=== PATIENT | female | born 1960 | race American Indian/Alaskan Native ===

== ENCOUNTER 2016-09-15 18:02 | Emergency (ER) | payer SELFPAY ==
--- NOTE | 2016-09-15 21:22 | Emergency Department Report ---
ED Asthma HPI - General Chief Complaint: Adult Asthma Stated Complaint: DANIEL/CHEST TIGHT Time Seen by Provider: 09/15/16 21:15 Source: patient Mode of arrival: Ambulatory Limitations: No Limitations - History of Present Illness Initial Comments: 55-year-old -French female with a past medical history of asthma comes in today for shortness of breathing for the past 2 days shortness of breathing worse at night and positive wheezing times one week area she admits to sneezing and coughing feeling stopped up. She denies any fever no chills no nausea no vomiting. She was recently in the hospital June 2016 for asthma and bronchitis. She does report she is out of her nebs she was taken that day prior to to 3 times a day. He has no known drug allergies - Related Data Previous Rx's Medication Instructions Recorded Last Taken Type Promethazine /Codeine 5 ml PO Q6H PRN #120 udc 08/25/14 Unknown Rx [Phenergan/Codeine 6.25-10 mg/5 ml] ALBUTEROL Inhaler [ProAir HFA 2 puff IH QID PRN #1 inhalation 06/23/16 Unknown Rx Inhaler] ALBUTEROL NEB's [Proventil 0.083% 2.5 mg IH Q4H PRN #30 nebu 06/23/16 Unknown Rx NEBS] Azithromycin [Zithromax Z-WILY] 1 dose PO DAILY #1 pack 06/23/16 Unknown Rx Benzonatate [Tessalon Perles] 100 mg PO Q8HR #30 capsule 06/23/16 Unknown Rx Famotidine [Pepcid] 20 mg PO BID #60 tablet 06/23/16 Unknown Rx Ipratropium/Albuterol Sulfate 1 ampul IH Q6HRT #30 ampul.neb 06/23/16 Unknown Rx [Duoneb 0.5 mg-3 mg/3 ml Soln] methylPREDNISolone [Medrol Dose 1 dose PO DAILY #1 pack 06/23/16 Unknown Rx Wily] ALBUTEROL NEB's [Proventil 0.083% 2.5 mg IH TID PRN #1 box 09/15/16 Unknown Rx NEBS] predniSONE [Deltasone] 20 mg PO QDAY #4 tab 09/15/16 Unknown Rx Allergies Allergy/AdvReac Type Severity Reaction Status Date / Time No Known Allergies Allergy Verified 04/27/15 17:41 ED Review of Systems ROS: Stated complaint: DANIEL/CHEST TIGHT Other details as noted in HPI ED Past Medical Hx - Past Medical History Hx Hypertension: Yes Hx Congestive Heart Failure: No Hx Diabetes: No Hx GERD: Yes Hx Asthma: Yes Hx COPD: No Additional medical history: HIATAL hernia, high cholesterol - Surgical History Additional Surgical History: stomach tumor removed, hernia - Social History Smoking Status: Never Smoker - Medications Home Medications: Home Medications Medication Instructions Recorded Confirmed Last Taken Type Promethazine /Codeine 5 ml PO Q6H PRN #120 udc 08/25/14 Unknown Rx [Phenergan/Codeine 6.25-10 mg/5 ml] ALBUTEROL Inhaler [ProAir HFA 2 puff IH QID PRN #1 inhalation 06/23/16 Unknown Rx Inhaler] ALBUTEROL NEB's [Proventil 0.083% 2.5 mg IH Q4H PRN #30 nebu 06/23/16 Unknown Rx NEBS] Azithromycin [Zithromax Z-WILY] 1 dose PO DAILY #1 pack 06/23/16 Unknown Rx Benzonatate [Tessalon Perles] 100 mg PO Q8HR #30 capsule 06/23/16 Unknown Rx Famotidine [Pepcid] 20 mg PO BID #60 tablet 06/23/16 Unknown Rx Ipratropium/Albuterol Sulfate 1 ampul IH Q6HRT #30 ampul.neb 06/23/16 Unknown Rx [Duoneb 0.5 mg-3 mg/3 ml Soln] methylPREDNISolone [Medrol Dose 1 dose PO DAILY #1 pack 06/23/16 Unknown Rx Wily] ALBUTEROL NEB's [Proventil 0.083% 2.5 mg IH TID PRN #1 box 09/15/16 Unknown Rx NEBS] predniSONE [Deltasone] 20 mg PO QDAY #4 tab 09/15/16 Unknown Rx ED Physical Exam - General Limitations: No Limitations General appearance: alert - Head Head exam: Present: atraumatic, normocephalic - Eye Eye exam: Present: normal appearance, PERRL, EOMI - ENT ENT exam: Present: normal orophraynx, mucous membranes moist, TM's normal bilaterally - Neck Neck exam: Present: normal inspection, full ROM. Absent: tenderness, lymphadenopathy - Respiratory Respiratory exam: Present: wheezes (expiratory wheeze) - Cardiovascular Cardiovascular Exam: Present: regular rate, normal rhythm, normal heart sounds - GI/Abdominal GI/Abdominal exam: Present: soft. Absent: distended, tenderness ED Course Vital Signs 09/15/16 09/15/16 09/15/16 18:50 20:50 21:56 Temperature 98.1 F 98.6 F Pulse Rate 88 98 H 87 Respiratory 20 20 Rate Blood Pressure 148/80 Blood Pressure 139/70 [Left] O2 Sat by Pulse 100 100 99 Oximetry - Reevaluation(s) Reevaluation #1: 09/15/16 22:38 Consent to nebulizer treatment which a primary care provider. ED Medical Decision Making - Medical Decision Making This has been evaluated by this provider fast track ordered DuoNeb mag sulfate and Solu-Medrol. Critical care attestation.: If time is entered above; I have spent that time in minutes in the direct care of this critically ill patient, excluding procedure time. ED Disposition Clinical Impression: Asthma exacerbation Disposition: DISCHARGED TO HOME OR SELFCARE Is pt being admited?: No Does the pt Need Aspirin: No Condition: Stable Additional Instructions: Please take the prednisone as prescribed used the albuterol nebulizer treatment as needed. Follow up with her primary care provider. Prescriptions: ALBUTEROL NEB's [Proventil 0.083% NEBS] 2.5 mg IH TID PRN #1 box PRN Reason: Shortness Of Breath predniSONE [Deltasone] 20 mg PO QDAY #4 tab Referrals: PRIMARY CARE, [Primary Care Provider] - 3-5 Days ROSE MARIE URIOSTEGUI MD [Staff Physician] - 3-5 Days Forms: Work/School Release Form(ED)
[2016-09-15] MEDS ORDERED: DUONEB 0.5 MG-3 MG/3 ML SOLN IH ONE ×2 (21:39→22:10)
[2016-09-15 21:56] VITALS: BP 139/70
[2016-09-15] MEDS ORDERED: PROVENTIL IH ONE ×2 (22:11→22:13)
[2016-09-16] MEDS ORDERED: DUONEB 0.5 MG-3 MG/3 ML SOLN IH SCH (08:00)
== END 2016-09-15 23:02 | disposition home or self-care (01) ==
LOC: ED 18:02
DX: J45.901 Unspecified asthma with (acute) exacerbation (principal); I10 Essential (primary) hypertension; K21.9 Gastro-esophageal reflux disease without esophagitis; E78.00 Pure hypercholesterolemia, unspecified
CPT/HCPCS: 93005; 93010; 94640; 96372; 99283; J2920